=== PATIENT | female | born 1960 | race African-American/Black ===

== ENCOUNTER 2017-05-22 08:41 | Day surgery (SDC) | payer OTHER ==
[2017-05-22 09:09] VITALS: BMI 32.3
[2017-05-22] MEDS ORDERED: PROPOFOL 20 ML ONE ×2 (09:12)
[2017-05-22 10:12] VITALS: TEMP 98.2
[2017-05-22 10:55] VITALS: BP 120/66; PULSE 72
== END 2017-05-22 10:57 | disposition home or self-care (01) ==
LOC: FASU-ENDO 08:41
PROVIDERS: ATTEND Internal Medicine Gastroenterology
PROC: 0DJD8ZZ Inspection of Lower Intestinal Tract, Via Natural or Artificial Opening Endoscopic (ICD-10-PCS; principal; 2017-05-22 09:42)
DX: Z12.11 Encounter for screening for malignant neoplasm of colon (principal); K57.30 Diverticulosis of large intestine without perforation or abscess without bleeding; K64.8 Other hemorrhoids; K64.4 Residual hemorrhoidal skin tags